=== PATIENT | female | born 1995 | race Caucasian/White ===

== ENCOUNTER 2018-03-25 16:07 | Inpatient (IN) | payer BC, OTHER ==
[~2018-03-25] VITALS: Ht 165.1 cm; Wt 68.0 kg
--- NOTE | 2018-03-25 20:50 | NUR ---
Pre-admission Assessment Patient is a 23-year old, male, seen at intake, AAOx4 and with no SOB noted. Patient also noted to be melancholic and with increasing anxiety. Patient verbalized that she is using Heroin IV daily for 8 months. Discussed with patient admission policies of the unit. Patient is coherent and able to respond to questions appropriately. Pt is ambulatory with steady gait. Vital signs taken and as follows: OO=021/64, P=97, O2 sat on RA=98%, RR=20, T=98.6. Pt verbalized instructions and teachings regarding disposal of narcotic and other controlled home meds, unit protocols such as taking of vital signs Q4H and handling and disposal of contraband.
--- NOTE | 2018-03-25 22:00 | NUR ---
ADMISSION NOTE Patient is a 23-year-old female admitted to [facility] on 03/25/18 for medically supervised opiate withdrawal. Patient was seen and assessed at intake by Josiah Hendrickson RN and on the unit at 2030. Patient is alert and oriented x4, coherent and able to answer questions, ambulatory with a steady gait. Patient appears anxious and worried, she is disheveled and fidgety. Patient states that her common withdrawal symptoms include: "chills and body aches are the worst, I get nauseous but only throw-up sometimes, runny/stuffy nose, and a lot of yawning. I get anxious and restless legs." Patient last used heroin IV around noon today and states, I used a lot less than I usually do, about 0.1gram which is like nothing. I feel like Im starting to withdraw already. Patient denies any history of seizure, denies any delirium or blackouts. Substance Abuse History: 1. Heroin IV 0.5-1gram daily for the past 2 weeks. Prior to two weeks ago, patient was using 0.5 grams daily since July 2017. Brief period of sobriety for 2 week during 2017. Patients last use was noon today 03/25/18, about 0.1 gram, and 0.1 gram at 0800 prior to noon. 2. Adderall PO 45-60mg every other day for the past 3 years. Patients last use was today, 03/25/18 of 60mg. 3. Vyvanse PO 140mg every other day for the past 3 years. Patient last use was yesterday, 03/24/18 of 140mg. 4. Xanax 0.5-1mg PO once or twice a month. Patient states, I dont take it very often because I dont like how it makes me feel. Last use was 03/10/18 of 1mg. Prior to starting Heroin IV in July of 2017, patient reports that she would occasionally take [place] or Oxy a couple times a month for all of 2016. Patient states that this is her first detox, with no previous treatment history. Patient states that she has not attended any AA/NA and she does not have a sponsor. When asked about why the client decided to seek treatment today, she stated, "Honestly, I'm here because of my parents. They said that they would stop supporting me unless I decided to come to detox. Obviously I want to be here too, but my parents are so controlling and I didn't want to have them decide what I do." Patient states that she was diagnosed with anxiety when she was [id number] and has been taking mood stabilizers and antidepressants since around the same time. In 2014 her physician Jose Ramon Biggs began to prescribe her with Adderall and Vyvanse, which she has been taking consistently since. Patient has a history of mild exercise-induced asthma but states that she has not used her inhaler since last year. Patient reports recurrent yeast infections and a history of frequent ear infections in her left year. After she had surgery to repair her left eardrum in 2014, she stopped having ear infections. When asked about why the client decided to seek treatment today, she stated, "Honestly, I'm here because of my parents. They said that they would stop supporting me unless I decided to come to detox. Obviously I want to be here too, but my parents are so controlling and I didn't want to have them decide what I do." She disclosed that, But part of the reason why I use is because of my parents. Theyre so controlling and never satisfied. I just started doing what I wanted to do because nothing I did was ever good enough for them. Margarette even talked to them about how their expectations are too high. When asked about living situation, patient states, "I was renting a room but I need to move out by the end of the month. My parents are helping me figure out where I'm going to live next, after rehab." When asked about internal motivation, patient states, "I don't really have one, I just don't want to need drugs to function." Patient denies using ETOH, cannabis, and denies smoking cigarettes. Patients longest period of sobriety was 2 weeks some time this past spring, stating, "I can't really remember when, I think it was October or November." Initial COWS 8, for stuffy nose, anxiety, increased HR, mild nausea, generalized body aches, and occasional yawning. Initial vitals as follows: XO=762/64, HR=97, O2 sat on RA=98%, RR=20, T=98.6. Patient denies pain, only complaining of body aches. Patients lung sounds are clear bilaterally, bowel sounds present x4 quadrants, abdomen soft and non-tender. PERRLA. Patients skin is intact, with some bruising noted bilaterally on her thighs from injecting heroin into the muscle if she could not find a vein. Patient stated, I know its bad, Im just impatient. Patient denies family health history, but states, "My mom is in recovery but she used to be an alcoholic. Her dad was an alcoholic too." Patient has been oriented to the unit, teaching has been provided verbally and via handout, policies reviewed. Patient is on fall and seizure precautions, safety measures in place, side rails up x2, bed locked in low position, call light within reach. Will continue to monitor.
[2018-03-25] MEDS ORDERED: MIRALAX 17 GM POWD.PACK PO PRN (22:15)
[2018-03-25] MEDS ORDERED: LOPERAMIDE HCL 2 MG CAPSULE PO PRN ×2 (22:15)
[2018-03-25] MEDS ORDERED: diphenhydrAMINE 50 MG CAPSULE PO PRN (22:15)
[2018-03-25] MEDS ORDERED: MAG HYDROX/AL HYDROX/SIMETH 30 ML LIQUID UDC PO PRN (22:15)
[2018-03-25] MEDS ORDERED: MAGNESIUM HYDROXIDE 30 ML LIQUID UDC PO PRN (22:15)
[2018-03-25] MEDS ORDERED: ONDANSETRON 4 MG/2 ML VIAL IM PRN (22:15)
[2018-03-25] MEDS ORDERED: 5 DAY TAPER BUPRENORPHINE -SERENITY PROTOCOL SL PRN (22:15)
[2018-03-25 22:18] LABS: BASOPHILS % (AUTO) 0.4 % (0.0-2.0); EOSINOPHILS # (AUTO) 0.2 K/uL (0.0-0.7); EOSINOPHILS % (AUTO) 2.6 % (0.0-7.0); HEMATOCRIT 38.8 % (31.2-41.9); HEMOGLOBIN 13.1 g/dL (10.9-14.3); LYMPHOCYTES # (AUTO) 4.7 K/uL (20.0-40.0); LYMPHOCYTES % (AUTO) 62.3 % (20.5-51.5); MEAN CORPUSCULAR HGB CONC 34 g/dL (32.3-35.6); MEAN CORPUSCULAR VOLUME 85.8 fL (75.5-95.3); MONOCYTES # (AUTO) 0.3 K/uL (2.0-10.0); MONOCYTES % (AUTO) 3.9 % (0.0-11.0); NEUTROPHILS # (AUTO) 2.3 K/uL (1.8-8.9); NEUTROPHILS % (AUTO) 30.8 % (38.5-71.5); PLATELET COUNT (AUTO) 281 K/uL (179-408); RED BLOOD CELL COUNT(AUTO) 4.52 MIL/uL (3.63-4.92); WHITE BLOOD COUNT (AUTO) 7.5 K/uL (3.8-11.8)
[2018-03-25 22:19] LABS: *URINE HCG, QUAL NEGATIVE (NEGATIVE)
[2018-03-25 22:29] LABS: ALANINE AMINOTRANSFERASE 60 U/L (14-59); ALKALINE PHOSPHATASE 163 U/L (50-136); AMYLASE 30 U/L (25-115); ASPARTATE AMINOTRANSFERASE 68 U/L (15-37); BILIRUBIN,TOTAL 0.8 mg/dL (0.2-1.0); CARBON DIOXIDE 29 mmol/L (21-32); CHLORIDE 97 mmol/L (98-107); CREATININE 0.8 mg/dL (0.6-1.3); GLUCOSE 59 mg/dL (74-106); LIPASE 120 U/L (73-393); MAGNESIUM 2.1 mg/dL (1.8-2.4); POTASSIUM 3.1 mmol/L (3.5-5.1); TOTAL PROTEIN, SERUM 8.4 g/dL (6.4-8.2); UREA NITROGEN, BLOOD 11 mg/dL (7-18)
[2018-03-25 22:30] LABS: ETHANOL < 3 MG/DL (0-0)
[2018-03-25 22:42] LABS: *AMPHETAMINE, URINE POSITIVE (NEGATIVE); *BARBITURATE, URINE NEGATIVE (NEGATIVE); *CANNABINOID, URINE NEGATIVE (NEGATIVE); *COCCAINE, URINE NEGATIVE (NEGATIVE); *OPIATE, URINE POSITIVE (NEGATIVE); *PHENCYCLIDINE SCREEN,URINE NEGATIVE (NEGATIVE)
[2018-03-25] MEDS ORDERED: POTASSIUM CHLORIDE 20 MEQ TAB.PRT.SR PO ONE (23:00)
[2018-03-25] MEDS ORDERED: LORAZEPAM 1 MG TABLET PO ONE (23:15)
[2018-03-25 23:40] LABS: THYROID STIMULATING HORMONE 2.125 mIU/mL (0.358-3.740)
--- NOTE | 2018-03-25 23:41 | NUR ---
COWS 16 Patient reports severe body aches, especially in her lower extremities. Patient reports stuffy nose, increased anxiety, piloerection, and mild nausea. Patient has increased HR and yawns several times every minute. Current COWS 16. SN to administer medications as ordered. Safety measures in place, side rails up x2, bed locked in low position, call light within reach. Will continue to monitor.
[2018-03-25] MEDS: BUPRENORPHINE HCL 2 MG TAB.SUBL SL PRN (23:45)
--- NOTE | 2018-03-25 23:45 | NUR ---
PRN SUBUTEX 4mg, ONE-TIME ATIVAN 2mg Patient given 4mg of Subutex SL for COWS of 16. Patient given 2mg Ativan PO as a one-time order for anxiety, agitation, restlessness, and irritability. Safety measures in place, side rails up x2, bed locked in low position, call light within reach. Will monitor for effectiveness.
[2018-03-26] VITALS: BP 114/66
[2018-03-26 00:02] LABS: BASOPHILS % (MANUAL) 1 % (0-2); EOSINOPHILS % (MANUAL) 1 % (0-8); LYMPHOCYTES % (MANUAL) 60 % (20-40); MONOCYTES % (MANUAL) 1 % (2-10); NEUTROPHILS % (MANUAL) 28 % (42-75)
--- NOTE | 2018-03-26 00:15 | NUR ---
PRN SUBUTEX REASSESSMENT Patient reports feeling "a little better." Current COWS is 13, 30 minutes after PRN Subutex 4mg SL. Safety measures in place, side rails up x2, bed locked in low position, call light within reach. Will continue to monitor.
[2018-03-26] MEDS ORDERED: FEXO-65 PO (01:25)
[2018-03-26] MEDS ORDERED: ARIP5TAB10 PO (01:28)
[2018-03-26] MEDS ORDERED: SIME125C81 PO (01:34)
[2018-03-26] MEDS ORDERED: VALA100026 PO (01:34)
[2018-03-26] MEDS ORDERED: LEVO1TAB64 PO (01:34)
[2018-03-26] MEDS ORDERED: SERT100T PO (01:34)
[2018-03-26] MEDS ORDERED: CALC117719 PO (01:37)
[2018-03-26] MEDS: METHOCARBAMOL 750 MG TABLET PO PRN ×2 (03:28→10:32)
[2018-03-26] MEDS: IBUPROFEN 400 MG TABLET PO PRN ×2 (03:28→10:33)
--- NOTE | 2018-03-26 03:28 | NUR ---
PRN MOTRIN & ROBAXIN Patient reports severe muscle aches in her legs and thighs, bilaterally. Patient reports that she is experiencing restless legs as well. PRN Motrin and Robaxin given PO. Safety measures in place, side rails up x2, bed locked in low position, call light within reach. Will monitor for effectiveness.
--- NOTE | 2018-03-26 03:45 | NUR ---
COWS 16 Patient states that her legs are very restless and aching terribly. She states, "my legs have never felt this sore before." Patient continues to report anxiety, piloerection, chills, agitation, mild nausea, and patient continues to yawn uncontrollably. Current COWS score is 16. SN to administer meds appropriately. Safety measures in place, call light within reach. Will continue to monitor.
[2018-03-26] MEDS: BUPRENORPHINE HCL 2 MG TAB.SUBL SL PRN (03:50)
[2018-03-26 04:00] VITALS: BP 111/63
--- NOTE | 2018-03-26 04:15 | NUR ---
PRN SUBUTEX REASSESSMENT Patient reports that withdrawal symptoms have improved, but that her legs still feel restless and sore/achy. Current COWS is 12. Safety measures in place, side rails up x2, bed locked in low position, call light within reach. Will continue to monitor.
--- NOTE | 2018-03-26 04:28 | NUR ---
PRN MOTRIN & ROBAXIN REASSESSMENT Patient states that her aches have improved from 7/10 to 5/10. PRN Motrin and Robaxin noted to be mildly effective. Safety measures in place, side rails up x2, bed locked in low position, call light within reach. Will continue to monitor.
--- NOTE | 2018-03-26 07:25 | NUR ---
END OF SHIFT Patient is a 23-year-old female admitted yesterday, 03/25/18, for opiate withdrawal. Patient has been placed on a 5-day Subutex taper, scheduled to start today. Patients last COWS was 12 at 0415 this morning, upon reassessment of second dose of Subutex. Patient received a one-time dose of Ativan 2mg at 2344 for anxiety, agitation, restlessness and irritability; noted to be effective. Patient received PRN Subutex 4mg SL x2, and PRN Motrin and Robaxin; all noted to be effective. Patients potassium was replace via oral K-dur tablets. Patient slept for 5 hours, total intake of 1,100mL, void x2, stool x1. Patient is on fall and seizure precautions, denies history of seizure. Safety measures in place, side rails up x2, bed locked in low position, call light within reach. Will endorse to day shift.
[2018-03-26] MEDS: DICYCLOMINE HCL 20 MG TABLET PO PRN (07:36)
--- NOTE | 2018-03-26 07:36 | NUR ---
START OF SHIFT & PRN Bentyl 20mg PO for abdominal spasms. Endorse rcvd from ongoing nurse, client in the room, she is a/o x 4, client presents with depressed mood, flat affect, clammy skin, and difficulty concentrating. Client reports nausea, diarrhea, stomach cramps, anxiety, agitation, fatigue, and restless legs. PRN Subutex 4mg SL @ 2345 & 0415 for COWS 16 both times, One time Ativan 2mg PO for anxiety. Last COWS 12 @ 0445. Client slept 5hr. [place] precautions in place. Encourage client to attend group therapy to learn skills to maintain sober. Encourage client to increase PO fluid a tolerated. Side rails x 2 up, bed in lowest/locked position. Call light within reach.
[2018-03-26] MEDS: MULTIVITAMINS,THERAPEUTIC TABLET PO SCH (08:06)
[2018-03-26] MEDS: BUPRENORPHINE HCL 2 MG TAB.SUBL SL SCH ×4 (08:06→20:43)
--- NOTE | 2018-03-26 08:06 | NUR ---
COWS 18 Client appears disheveled, dark [place] under eyes, presents with anxiety, irritability, sweat on forehead and upper lip, enlarged pupil, tremors felt, yawning, goosebump, and runny nose. Client reports abdominal spasms, nausea, stomach cramps, sweats, a sense of panic, and fatigue. Schedule Subutex 4mg SL administered. Encourage client to attend group therapy to learn skills to maintain sober. Encourage client to increase increase PO fluid as tolerated to facilitate detox. Call light within reach.
--- NOTE | 2018-03-26 08:36 | NUR ---
Reassess PRN Bentyl 20mg, client reports slight relief from abdominal spasms. Call light within reach.
[2018-03-26 08:55] VITALS: BP 138/86
[2018-03-26] MEDS ORDERED: TUBERCULIN,PURIF.PROT.DERIV. 5 TU/0.1 ML TEST ID ONE (09:00)
[2018-03-26] MEDS: ARIPIPRAZOLE 5 MG TABLET PO SCH ×3 (09:45→11:11)
[2018-03-26] MEDS: CLONIDINE HCL 0.1 MG TABLET PO PRN (10:33)
[2018-03-26] MEDS: ONDANSETRON ODT 4 MG TAB.RAPDIS SL PRN (10:33)
[2018-03-26] MEDS: ACETAMINOPHEN 325 MG TABLET PO PRN (10:33)
--- NOTE | 2018-03-26 10:33 | NUR ---
PRN Zofran 4mg SL, Tylenol 650mg Po, Motrin 60mg PO, Robaxin 750mg, and Clonidine 0.1mg PO administered for nausea, no episodes of emesis, ELIZONDO 7/10, myalgia on BLE, and Anxiety, agitation, chills respectively. Call light within reach.
[2018-03-26] MEDS: SERTRALINE HCL 100 MG TABLET PO SCH (10:34)
--- NOTE | 2018-03-26 11:03 | NUR ---
Reassess PRN Zofran 4mg, client reports relief from nausea at this time.
--- NOTE | 2018-03-26 11:33 | NUR ---
Reassess PRN Tylenol 650mg, Motrin 60mg, Robaxin 750mg, and Clonidine 0.1mg, client reports slight relief from ELIZONDO 3/10, myalgia on BLE, and nxiety, agitation. Call light within reach.
[2018-03-26 12:12] VITALS: BP 98/60
[2018-03-26] MEDS: HYDROXYZINE PAMOATE 25 MG CAPSULE PO PRN (12:29)
--- NOTE | 2018-03-26 12:29 | NUR ---
COWS 17 & PRN Vistaril 50mg Po for anxiety Client presents with anxiety, agitation, irritability, diaphoresis, enlarged pupil, tremors, runny nose, and yawing. Client reports in a a loud voice generalized body aches 6/10, nausea, stomach cramps, sweats, chills. cold, and fatigue. Schedule Subutex 4mg SL administered. Encourage client to increase PO fluid as tolerated to facilitate detox. Call light within reach.
--- NOTE | 2018-03-26 13:29 | NUR ---
Reassess PRN Vistaril 50mg, client reports slight relief from anxiety. Call light within reach.
[2018-03-26 16:42] VITALS: BP 100/61
[2018-03-26] MEDS: LEVONORGESTREL PO SCH (16:43)
[2018-03-26] MEDS: ETHINYL ESTRADIOL PO SCH (16:43)
--- NOTE | 2018-03-26 19:27 | NUR ---
START OF SHIFT NOTE: The patient is an 23 year female, presented for Benzodiazepines and Opioid withdrawal under medical supervision, continues ordered 5 day Subutex Tape (today is day 2), which tolerated well. Withdrawal symptoms will be closely monitoring. The patient is alert and oriented x4, ambulatory with steady gait, soft clear speech, cooperative, and verbally appropriate. The patient appears worried, difficulty concentrating, with poor eye contact. Anxious mood, and irritable affect. Encourage to expressing her feelings, reassuring provided. The most recent COWS=17 at 1642. Throughout day shift patient experienced moderate withdrawal symptoms such as anxiety, agitation, depression, irritability, nausea, nervousness, tremors, nasal congestion, severe general body aches, goose bumps, myalgia, restlessness, fatigue, and yawning. PRN medications administrated during day shift were effective per day shift nurse report. Patient remains compliant with treatment, medications, and diet regimen. Encouraged to attend group activities. Encouraged to intake fluids as tolerated. All needs met. Safety measures: Call light within reach, bed locked in lowest position, padded bed rails up x2. Endorsed by outgoing day shift nurse. Will continue to monitor closely.
--- NOTE | 2018-03-26 19:27 | NUR ---
END OF SHIFT Endorse client to incoming nurse, client is in group therapy, a/o x 4. Client monitored closely during shift, continues on Subutex taper as ordered. During shift client presented with nausea, anxiety, agitation, stomach cramps, difficulty concentrating, avoidant gaze, flushed face, goosebump, yawning, and fatigue. Last COWS 17 @ 1600.PRN administered and noted per protocol. Adequate PO fluid intake 1100mL, void x 3, stool x 1. Consumes 50-75% of meals. Call light within reach.
[2018-03-26 20:00] VITALS: BP 118/87
--- NOTE | 2018-03-26 20:00 | NUR ---
COWS ASSESSMENT COWS=12 at 2000. Patient experienced anxiety, agitation, depression, irritability, nervousness, sweating, fine tremors, flashed face, nasal congestion , restlessness, fatigue, and yawning. Encouraged to intake fluids as tolerated. Safe and calm environment provided. Encouraged to intake fluids as tolerated. All needs met. Safety measures: Call light within reach, bed locked in lowest position, padded bed rails up x2. Will continue to monitor closely.
[2018-03-26] MEDS ORDERED: POTASSIUM CHLORIDE 20 MEQ TAB.PRT.SR PO ONE (21:00)
[2018-03-27] VITALS: BP 95/56
--- NOTE | 2018-03-27 | NUR ---
COWS ASSESSMENT COWS=11 at 0000. Patient presented with anxiety, agitation, depression, irritability, nervousness, bilateral pupils larger than normal size, sweating, fine tremors, nasal congestion , restlessness, and fatigue. Encouraged to intake fluids as tolerated. Safe and calm environment provided. Encouraged to intake fluids as tolerated. All needs met. Safety measures: Call light within reach, bed locked in lowest position, padded bed rails up x2. Will continue to monitor closely.
[2018-03-27 04:00] VITALS: BP 95/53
--- NOTE | 2018-03-27 04:00 | NUR ---
COWS ASSESSMENT COWS=11 at 0400. Patient presented with anxiety, agitation, irritability, nervousness, nasal congestion, sweating, bilateral tremors that can be felt not observe, restlessness, fatigue, and yawning. Safe and calm environment provided. All needs met. Safety measures: Call light within reach, bed locked in lowest position, padded bed rails up x2. Will continue to monitor closely.
[2018-03-27 07:06] LABS: HEPATITIS B SURFACE AG Negative (Negative)
--- NOTE | 2018-03-27 07:18 | NUR ---
END OF SHIFT NOTE: The patient is an 23 year female, presented for Benzodiazepines and Opioid withdrawal under medical supervision, continues ordered 5 day Subutex Tape (today is day 2), which tolerated well. Withdrawal symptoms will be closely monitoring. The patient is alert and oriented x4, ambulatory with steady gait, soft clear speech, cooperative, and verbally appropriate. The patient appears worried, difficulty concentrating, with poor eye contact. Anxious mood, and irritable affect. Encourage to expressing her feelings, reassuring provided. COWS=12 at 2000, COWS=11 at 0000. The most recent COWS=11 at 0400. Patient presented with anxiety, agitation, irritability, nervousness, nasal congestion, sweating, bilateral tremors that can be felt not observe, restlessness, fatigue, and yawning. No PRN medications administrated during night clerk. Patient remains compliant with treatment, medications, and diet regimen. Patient slept for 10 hours, intake 355 ml, output: voided x1. Safe and calm environment provided. Encouraged to intake fluids as tolerated. All needs met. Safety measures: Call light within reach, bed locked in lowest position, padded bed rails up x2. Endorsed to day shift nurse.
--- NOTE | 2018-03-27 07:30 | NUR ---
START OF SHIFT Endorse rcvd from ongoing nurse, client had an uneventful night, she slept 11hrs. Last COWS 11 @ 0400. Client is in bed, lying on her R side, she sounds asleep, easy to arouse. RR 16, even, non-labored. Call light within reach. Room is unkept, open soft drink and water bottles along with candy wraps scattered around her bedside and floor. Primary nurse cleaned area. Will continue to monitor.
[2018-03-27 08:55] VITALS: BP 100/60
[2018-03-27] MEDS: SERTRALINE HCL 100 MG TABLET PO SCH (09:14)
[2018-03-27] MEDS: BUPRENORPHINE HCL 2 MG TAB.SUBL SL SCH ×3 (09:14→20:45)
--- NOTE | 2018-03-27 09:14 | NUR ---
COWS 16 Client is in bed, she appears disheveled, dark [place] under eyes, tremors, clammy skin, restless legs, and difficulty concentrating. Client reports generalized body aches 6/10, nausea, no emesis, headache, fatigue, depressed, stomach cramps, and do not feel like to getting up, or walk around or even take a shower." Schedule Subutex 4mg SL, Abilify 2.5mg PO, Zoloft 100mg PO administered. Encourage client to increase ADL as tolerated. Encourage increase intake PO fluid as tolerated to facilitate detox. Call light within reach.
[2018-03-27] MEDS: MULTIVITAMINS,THERAPEUTIC TABLET PO SCH (09:15)
[2018-03-27] MEDS: ONDANSETRON ODT 4 MG TAB.RAPDIS SL PRN (09:15)
[2018-03-27] MEDS: ARIPIPRAZOLE 5 MG TABLET PO SCH (09:15)
--- NOTE | 2018-03-27 09:15 | NUR ---
PRN Zofran 4mg SL for nausea, no emesis administered. Call light within reach.
[2018-03-27] MEDS: LEVONORGESTREL PO SCH (09:16)
[2018-03-27] MEDS: ETHINYL ESTRADIOL PO SCH (09:16)
--- NOTE | 2018-03-27 09:45 | NUR ---
Reassess PRN Zofran 4mg, client reports relief from nausea. Call light within reach.
--- NOTE | 2018-03-27 10:04 | NUR ---
Therapist prompted client to attend group therapy sessions and client stated that she would be attending.
--- NOTE | 2018-03-27 12:50 | NUR ---
COWS 13 Client presents with anxiety, agitation, irritability, enlarged pupil, tremors, runny nose, and yawing. Support offered, client decline PRN medications to assist with withdrawal symptoms. Encourage client to increase PO fluid as tolerated to facilitate detox. Call light within reach.
[2018-03-27 12:55] VITALS: BP 105/60
--- NOTE | 2018-03-27 15:40 | NUR ---
COWS 13 Client reports restless, anxiety, agitation, nausea, decreased appetite, cold/chills, and fatigue. Schedule Subutex 4mg SL administered. Call light within reach.
[2018-03-27 16:00] VITALS: BP 98/56
--- NOTE | 2018-03-27 19:21 | NUR ---
END OF SHIFT Endorse client to incoming nurse, client is in room, a/o x 4.Client continues to present with anxiety, agitation, tremors, clammy skin, nausea, yawning, nasal congestion, and fatigue. Last COWS 13 @ 1600. PRN medication administered and noted per protocol. Client is not compliant with group therapy, encouragement needed. Adequate PO fluid intake 1446mL, void x 5. Consumes 50-75% of meals. Call light within reach.
--- NOTE | 2018-03-27 19:44 | NUR ---
START OF SHIFT NOTE Rcvd report from outgoing nurse. Pt is a 23 y/o female A/O to person, place, time, and purpose. Pt was admitted for medically supervised withdrawal from Opiates. Pt also has a substance abuse h/o Aderall, Vyvance, and Xanax (rarely). Pt has been presenting w/ flat affect, depressed mood, nausea, unkempt and disheveled appearance, and isolative. Pt states they have body aches, headaches, anxiety, tremors, and lethargy. PRN Zofran was given for nausea w/ no emesis, noted effective. Last COWS 13 @ 1600. Call light is within reach. Pt will continue to be monitored and needs met.
[2018-03-27 20:31] VITALS: BP 115/63
--- NOTE | 2018-03-27 20:31 | NUR ---
COWS ASSESSMENT COWS 13. Pt has been presenting w/ flat affect, depressed mood, nausea, unkempt and disheveled appearance, isolative, body aches, headaches, anxiety, tremors, and lethargy. V/S: T:98.8, P:78, RR:16, SPO2:99, BP:115/63.
--- NOTE | 2018-03-28 00:04 | NUR ---
COWS DEFERRED Pt is in bed w/ her eyes closed. Pt's respirations are unlabored and even.
[2018-03-28] MEDS: CLONIDINE HCL 0.1 MG TABLET PO PRN (03:29)
[2018-03-28] MEDS: METHOCARBAMOL 750 MG TABLET PO PRN ×2 (03:29→11:06)
--- NOTE | 2018-03-28 03:29 | NUR ---
PRN CLONIDINE AND ROBAXIN Clonidine 0.1mg and Robaxin 750mg given for muscle aches and anxiety/restlessness. Will reassess pt in 1 hr.
--- NOTE | 2018-03-28 04:01 | NUR ---
COWS ASSESSMENT COWS 12. Pt presenting w/ anxiety, body aches, headache, restlessness, and tremors. V/S: P: 67, BP: 129/77
[2018-03-28 04:04] VITALS: BP 129/77
--- NOTE | 2018-03-28 04:29 | NUR ---
PRN ROBAXIN AND CLONIDINE Pt is in bed w/ her eyes closed. Pt's respirations are unlabored and even.
--- NOTE | 2018-03-28 07:09 | NUR ---
END OF SHIFT NOTE Endorsed pt to oncoming nurse. Pt is a 23 y/o female A/O to person, place, time, and purpose. Pt was admitted for medically supervised withdrawal from Opiates. Pt also has a substance abuse h/o Aderall, Vyvance, and Xanax (rarely). Pt has been presenting w/flat affect, depressed mood, nausea, unkempt and disheveled appearance, and isolative. Pt states they have body aches, headaches, anxiety, tremors, and lethargy. PRN Robaxin and Clonidine were given and noted effective. Pt denies any S/I or H/I. Pts fluid intake was 1000ml and she voided 3 times. Pt slept for 8 hrs. Last COWS 12 @ 0400. Call light is within reach.
--- NOTE | 2018-03-28 07:20 | NUR ---
Start of Shift Note Pt. is a 23 y/o female admitted for the medically managed withdrawal from Opiates (Heroin). Pt. was also concurrently using Adderall,and Vyvanze, daily along with her opiate abuse. Pt. was placed on a 5 day Subutex taper to manage withdrawal symptoms. Endorse from previous shift pt. presented with a flat affect, depressed mood, nausea, withdrawn, body aches, anxiety, tremors and with a disheveled appearance. PRN Robaxin and Clonidine given to manage withdrawal symptoms. Last COW's of 12. Received pt. in room. Pt. laying in bed with eyes closed respiration even and symmetrical. Pt. arousable to name. Educated pt. on treatment plan and medication regiment. Safety measures in place. Will continue to monitor pt.'s behavior for safety.
[2018-03-28 08:00] VITALS: BP 90/51
--- NOTE | 2018-03-28 08:00 | NUR ---
COWS ASSESSMENT COWS 12. Pt. laying in her bed and presents with diaphoresis, body aches, nausea, anxiety and tremors. Will administer medication as ordered. Will continue to monitor pt.'s behavior for safety.
[2018-03-28] MEDS: SERTRALINE HCL 100 MG TABLET PO SCH (08:12)
[2018-03-28] MEDS: ETHINYL ESTRADIOL PO SCH (08:12)
[2018-03-28] MEDS: LEVONORGESTREL PO SCH (08:12)
[2018-03-28] MEDS: ARIPIPRAZOLE 5 MG TABLET PO SCH (08:12)
[2018-03-28] MEDS: MULTIVITAMINS,THERAPEUTIC TABLET PO SCH (08:12)
[2018-03-28] MEDS ORDERED: BUPRENORPHINE HCL 2 MG TAB.SUBL SL SCH (09:00)
[2018-03-28] MEDS: IBUPROFEN 400 MG TABLET PO PRN ×2 (11:06→20:23)
--- NOTE | 2018-03-28 11:07 | NUR ---
PRN Medication Pt. in room laying in her bed complaining of body aches 01/04. PRN Motrin and Robaxin given at this time. Will continue to monitor pt.'s behavior for safety and medication effectiveness.
--- NOTE | 2018-03-28 12:00 | NUR ---
COWS ASSESSMENT COWS 1. Pt. laying in her bed and presents with diaphoresis, body aches, nausea, anxiety and tremors. Pt. compliant with medication administration and is able to make her needs be known. Will continue to monitor pt.'s behavior for safety.
--- NOTE | 2018-03-28 12:10 | NUR ---
PRN Medication Re-Assessment Pt. is laying in bed watching television. Pt. reports 0/10 pain. Medication effective. Will continue to monitor pt.'s behavior safety.
[2018-03-28 12:15] VITALS: BP 94/50
[2018-03-28] MEDS: BUPRENORPHINE HCL 2 MG TAB.SUBL SL SCH ×2 (14:07→20:23)
[2018-03-28] MEDS: DICYCLOMINE HCL 20 MG TABLET PO PRN (15:35)
[2018-03-28] MEDS: BACLOFEN 20 MG TABLET PO PRN (15:35)
--- NOTE | 2018-03-28 15:36 | NUR ---
PRN Medication Pt. laying bed with linens pulled over her head. Pt. reports chills, stomach cramps, and 6/10 body aches. Pt. given PRN Baclofen and Bentyl, at this time to manage withdrawal symptoms. Will continue to monitor pt. for safety and drug effectiveness.
[2018-03-28 16:00] VITALS: BP 87/48
--- NOTE | 2018-03-28 16:00 | NUR ---
COWS ASSESSMENT COWS 11. Pt. laying in her bed and presents with diaphoresis, body aches, anxiety and tremors. Pt. compliant with treatment plan and medication administration. Will continue to monitor pt. for safety.
--- NOTE | 2018-03-28 16:15 | NUR ---
PRN Re-Assessment Pt. laying in bed and reports a decreased in body aches intensity 2/10, Pt. also reports no longer experiencing any stomach cramping anymore. Medication effective. Will continue to monitor pt. for safety.
--- NOTE | 2018-03-28 19:06 | NUR ---
End of Shift Note Pt. is a 23 y/o female admitted for the medically managed withdrawal from Opiates (Heroin). Pt. was also concurrently using Adderall,and Vyvanze, daily along with her opiate abuse. Pt. compliant with her medication regiment throughout shift. Pt, continually presented with a flat affect, depressed mood, nausea, withdrawn, body aches, anxiety, tremors and with a disheveled appearance. PRN Robaxin, Baclofen, Bentyl, and Motrin given to manage withdrawal symptoms. Last COW's of 11. Safety measures in place. Will endorse pt.'s care to oncoming shift.
--- NOTE | 2018-03-28 19:30 | NUR ---
Start of shift note Received report from day shift nurse. Patient is a 23 year old female admitted for Opiate withdrawal. Patient is on 5 day Subutex taper. Patient was given PRN Robaxin, Clonidine and Motrin. Last COWS 11. Patient alert and oriented x 4. Patient presents with flat affect, depressed mood, eye avoidant, disheveled, anxious, muscle aches, hot and cold sweats, yawning , poor appetite, and tremors. Encourage fluids. Safety measures in place. Call light in reach. Will continue to monitor.
[2018-03-28 20:00] VITALS: BP 106/60
--- NOTE | 2018-03-28 20:00 | NUR ---
COWS assessment Patient presents with anxiety , muscle aches, hot and cold sweats, yawning , poor appetite, and tremors. COWS 11.
--- NOTE | 2018-03-28 20:23 | NUR ---
PRN Motrin administration Patient c/o body aches. Will monitor for effectiveness
--- NOTE | 2018-03-28 21:23 | NUR ---
PRN Motrin re-assessment Patient states Motrin helpful and effective. Will continue to monitor.
[2018-03-29] VITALS: BP 104/54
--- NOTE | 2018-03-29 | NUR ---
COWS deferred Patient lying in bed with eyes closed. Respiration even and unlabored. Will continue to monitor
[2018-03-29 04:00] VITALS: BP 102/64
--- NOTE | 2018-03-29 04:00 | NUR ---
COWS deferred Patient lying in bed with eyes closed. Respiration even and unlabored.Will continue to monitor
--- NOTE | 2018-03-29 05:15 | NUR ---
COWS assessment Patient awake . Anxious and c/o muscle aches. CIWA 8 upon assessment
[2018-03-29] MEDS: BACLOFEN 20 MG TABLET PO PRN ×3 (05:16→20:59)
--- NOTE | 2018-03-29 05:16 | NUR ---
PRN Baclofen administration Patient c/o muscle aches. Will monitor for effectiveness
--- NOTE | 2018-03-29 06:16 | NUR ---
PRN Baclofen re-assessment Patient lying in bed with eyes closed. Respiration even and unlabored. No facial grimacing. Will continue to monitor
--- NOTE | 2018-03-29 07:07 | NUR ---
End of shift note Patient slept 5 hours. Fluid intake 750 ml. Voided x 2.No BM. Patient isolative and withdrawn. Patient presented with flat affect, depressed mood, eye avoidant, disheveled, anxious, muscle aches, hot and cold sweats, yawning , poor appetite, and tremors. Scheduled taper given, tolerated well and no adverse reaction. PRN Motrin given, effective. At, 0516, patient woke up and c/o muscle aches. PRN Baclofen given. Encouraged fluids. Safety measures in place. Call light in reach. Will continue to monitor. Last COWS 8.
--- NOTE | 2018-03-29 07:40 | NUR ---
START OF SHIFT Endorse rcvd from ongoing nurse, PRN Baclofen 20mg PO for muscle spasms on BLE, she slept 5 hrs. Last COWS 8 @ 0500. Client is in bed, lying on her L side, she sounds asleep, easy to arouse. RR 16, even, non-labored. Call light within reach. Will continue to monitor.
[2018-03-29] MEDS: BUPRENORPHINE HCL 2 MG TAB.SUBL SL SCH ×3 (08:44→20:18)
[2018-03-29] MEDS: SERTRALINE HCL 100 MG TABLET PO SCH (08:44)
[2018-03-29] MEDS: ACETAMINOPHEN 325 MG TABLET PO PRN (08:44)
[2018-03-29] MEDS: HYDROXYZINE PAMOATE 25 MG CAPSULE PO PRN (08:44)
[2018-03-29] MEDS: ARIPIPRAZOLE 5 MG TABLET PO SCH (08:44)
[2018-03-29] MEDS: IBUPROFEN 400 MG TABLET PO PRN (08:44)
[2018-03-29] MEDS: MULTIVITAMINS,THERAPEUTIC TABLET PO SCH (08:44)
--- NOTE | 2018-03-29 08:44 | NUR ---
COWS 12 @ Motrin 600mg PO, Tylenol 650mg PO, Vistaril 50mg PO Client is in bed, dark comanche under eyes, tremors felt, clammy skin, restless legs, and difficulty concentrating. Client reports generalized body aches 6/10, nausea, no emesis, headache, fatigue, depressed, stomach cramps, and fatigue. Schedule Subutex 2mg SL, Abilify 2.5mg PO, Zoloft 100mg PO administered. Encourage client to increase ADL as tolerated. Encourage increase intake PO fluid as tolerated to facilitate detox. Call light within reach.
[2018-03-29] MEDS: LEVONORGESTREL PO SCH (08:48)
[2018-03-29] MEDS: ETHINYL ESTRADIOL PO SCH (08:48)
[2018-03-29 08:50] VITALS: BP 105/60
--- NOTE | 2018-03-29 09:44 | NUR ---
Reasses Motrin 600mg, Tylenol 650mg, Vistaril 50mg, client reports some relief from generalized body aches 3/10, but tolerable and slight less anxious. Call light within reach.
[2018-03-29 12:00] VITALS: BP 97/52
--- NOTE | 2018-03-29 12:00 | NUR ---
COWS 12 Client presents with anxiety, agitation, irritability, enlarged pupil, tremors, runny nose, and yawing. Support offered, client refused any PRN medications to manage with withdrawal symptoms. Encourage client to increase PO fluid as tolerated to facilitate detox. Call light within reach.
--- NOTE | 2018-03-29 13:08 | NUR ---
PRN Baclofen 20mg PO for muscle spasms on BLE. Call light within reach.
--- NOTE | 2018-03-29 14:06 | NUR ---
Therapist prompted client to attend group therapy.
--- NOTE | 2018-03-29 14:08 | NUR ---
PRN Baclofen 20mg, client reports relief from muscle spasms on BLE. Call light within reach.
--- NOTE | 2018-03-29 15:29 | NUR ---
COWS 12 Client reports restless, anxiety, agitation, nausea, decreased appetite, cold/chills, and fatigue. Schedule Subutex 2mg SL administered. Call light within reach.
[2018-03-29 16:55] VITALS: BP 93/58
--- NOTE | 2018-03-29 19:04 | NUR ---
END OF SHIFT Endorse client to incoming nurse, client is in room, a/o x 4.Client continues to present with anxiety, agitation, tremors felt, clammy skin, nausea, and fatigue. Last COWS 12 @ 1600. PRN medication administered and noted per protocol. Client is not compliant with group therapy, encouragement needed. Adequate PO fluid intake 1950mL, void x 5. Consumes 50-75% of meals. Call light within reach.
--- NOTE | 2018-03-29 19:25 | NUR ---
START OF SHIFT Patient is a 23-year-old female admitted on 03/25/28 for opiate withdrawal. Patient is currently on a Subutex taper, tolerating well; the taper will end tomorrow morning. Patient's last COWS score was 12, per endorsement. Patient received the following PRN medications today: Motrin, Tylenol, Vistaril, and baclofen. All PRN meds noted to be effective. Upon assessment, patient is alert and oriented x4. Patient complains of nausea and body aches. She states, "I just don't feel good. I still feel uncomfortable all the time." Patient is on fall and seizure precautions with no history of seizure. Safety measures in place, side rails up x2, bed locked in low position, call light within reach. Will continue to monitor.
[2018-03-29 20:00] VITALS: BP 94/51
[2018-03-29] MEDS: ONDANSETRON ODT 4 MG TAB.RAPDIS SL PRN (20:18)
--- NOTE | 2018-03-29 20:18 | NUR ---
PRN ZOFRAN Patient reports nausea. PRN Zofran 4mg given SL. Within 3 minutes of administration, patient had one episode of emesis. Safety measures in place, side rails up x2, bed locked in low position, call light within reach. Will monitor for effectiveness.
--- NOTE | 2018-03-29 20:48 | NUR ---
PRN ZOFRAN REASSESSMENT After initial episode of emesis, patient reports no further N/V. PRN Zofran noted to be effective. Safety measures in place, side rails up x2, bed locked in low position, call light within reach. Will continue to monitor.
[2018-03-29 21:12] LABS: BILIRUBIN,TOTAL 0.5 mg/dL (0.2-1.0); CREATININE 0.8 mg/dL (0.6-1.3); POTASSIUM 3.9 mmol/L (3.5-5.1); TOTAL PROTEIN, SERUM 7.3 g/dL (6.4-8.2)
[2018-03-30] VITALS: BP 92/48
--- NOTE | 2018-03-30 | NUR ---
COWS DEFERRED COWS deferred at this time due to patient sleeping; to be assessed while patient is awake. Safety measures in place, side rails up x2, bed locked in low position, call light within reach. Will continue to monitor.
[2018-03-30 04:00] VITALS: BP 84/46
--- NOTE | 2018-03-30 04:00 | NUR ---
COWS DEFERRED COWS deferred at this time due to patient sleeping; to be assessed while patient is awake, per protocol. Safety measures in place, side rails up x2, bed locked in low position, call light within reach. Will continue to monitor.
--- NOTE | 2018-03-30 05:50 | NUR ---
COWS 11 Patient reports that she is no longer nauseous, no more episodes of emesis. Patient reports muscle aches/spasm, some chills, anxiety, and overall feeling "uncomfortable." Current COWS 11. Safety measures in place, side rails up x2, bed locked in low position, call light within reach. Will continue to monitor.
[2018-03-30] MEDS: BACLOFEN 20 MG TABLET PO PRN ×3 (05:54→18:33)
--- NOTE | 2018-03-30 05:54 | NUR ---
PRN BACLOFEN Patient reports feeling muscle aches and requests muscle relaxant. PRN Baclofen given PO. Safety measures in place, side rails up x2, bed locked in low position, call light within reach. Will monitor for effectiveness.
--- NOTE | 2018-03-30 06:54 | NUR ---
PRN BACLOFEN REASSESSMENT Patient reports that PRN Baclofen was effective in relieving muscle aches/spasms. Safety measures in place, call light within reach. Will continue to monitor.
--- NOTE | 2018-03-30 07:20 | NUR ---
END OF SHIFT Patient is a 23-year-old female admitted on 03/25/28 for opiate withdrawal. Patient is currently on a Subutex taper, tolerating well; taper will be completed this morning (last dose 0900). Patient's last COWS score was 11. Patient received PRN Zofran for nausea, which was effective after one episode of emesis. PRN Baclofen given for complaints of muscle spasm this morning, noted to be effective. Patient slept for 6 hours, total intake of 400mL, void x2, stool x0. Patient is on fall and seizure precautions with no history of seizure. Safety measures in place, side rails up x2, bed locked in low position, call light within reach. Will endorse to day shift.
[2018-03-30 07:24] LABS: BASOPHILS % (AUTO) 0.5 % (0.0-2.0); EOSINOPHILS # (AUTO) 0.2 K/uL (0.0-0.7); EOSINOPHILS % (AUTO) 2.3 % (0.0-7.0); HEMATOCRIT 35.6 % (31.2-41.9); LYMPHOCYTES # (AUTO) 4.7 K/uL (20.0-40.0); LYMPHOCYTES % (AUTO) 66.6 % (20.5-51.5); MEAN CORPUSCULAR HEMOGLOBIN 28.9 uug (24.7-32.8); MEAN CORPUSCULAR HGB CONC 34 g/dL (32.3-35.6); MEAN CORPUSCULAR VOLUME 85.6 fL (75.5-95.3); MONOCYTES # (AUTO) 0.4 K/uL (2.0-10.0); MONOCYTES % (AUTO) 5.2 % (0.0-11.0); NEUTROPHILS # (AUTO) 1.8 K/uL (1.8-8.9); NEUTROPHILS % (AUTO) 25.4 % (38.5-71.5); PLATELET COUNT (AUTO) 257 K/uL (179-408); RED BLOOD CELL COUNT(AUTO) 4.15 MIL/uL (3.63-4.92)
[2018-03-30 07:42] LABS: BILIRUBIN,DIRECT 0.2 mg/dL (0.0-0.2); BILIRUBIN,TOTAL 0.5 mg/dL (0.2-1.0); CREATININE 0.8 mg/dL (0.6-1.3); POTASSIUM 3.8 mmol/L (3.5-5.1); TOTAL PROTEIN, SERUM 6.9 g/dL (6.4-8.2)
[2018-03-30 08:00] VITALS: BP 111/74
[2018-03-30 08:04] LABS: BAND % (MANUAL) 1 % (0-10); EOSINOPHILS % (MANUAL) 3 % (0-8); LYMPHOCYTES % (MANUAL) 55 % (20-40); MONOCYTES % (MANUAL) 8 % (2-10); NEUTROPHILS % (MANUAL) 28 % (42-75)
--- NOTE | 2018-03-30 08:05 | NUR ---
START OF SHIFT: Received Pt A/O X 4. She presents with blunted affect and subdued mood. She continues on Subutex taper to manage s/s of w/d. She reports body aches,anxiety,intermittent sweats and chills and anxiety. COWS 9. She states she had nausea last night but states she feels better this AM. Encouraged group attendance to improve coping skills and prevent relapse.Encouraged increased fluids to assist in facilitating detox process.
[2018-03-30 08:06] LABS: REACTIVE LYMPHOCYTES 5 % (0-0)
[2018-03-30] MEDS: ARIPIPRAZOLE 5 MG TABLET PO SCH (08:42)
[2018-03-30] MEDS: LEVONORGESTREL PO SCH (08:43)
[2018-03-30] MEDS: ETHINYL ESTRADIOL PO SCH (08:43)
[2018-03-30] MEDS: SERTRALINE HCL 100 MG TABLET PO SCH (08:43)
[2018-03-30] MEDS: MULTIVITAMINS,THERAPEUTIC TABLET PO SCH (08:43)
[2018-03-30] MEDS ORDERED: BUPRENORPHINE HCL 2 MG TAB.SUBL SL SCH (09:00)
[2018-03-30 12:00] VITALS: BP 103/57
--- NOTE | 2018-03-30 12:05 | NUR ---
COWS 7. She reports muscle aches,restless and intermittent sweats.
--- NOTE | 2018-03-30 12:20 | NUR ---
Pt C/O muscle aches. PRN Baclofen given. Will monitor effectiveness of PRN.
--- NOTE | 2018-03-30 13:20 | NUR ---
Pt state Baclofen was effective. She states her muscle aches have lessened.
[2018-03-30] MEDS ORDERED: BACL20TA PO (13:27)
[2018-03-30] MEDS ORDERED: CLON0.1T14 PO (13:27)
[2018-03-30] MEDS ORDERED: ARIP5TAB10 PO (13:27)
[2018-03-30 16:00] VITALS: BP 101/51
[2018-03-30] MEDS: ACETAMINOPHEN 325 MG TABLET PO PRN (17:29)
[2018-03-30] MEDS: IBUPROFEN 400 MG TABLET PO PRN (17:29)
--- NOTE | 2018-03-30 17:31 | NUR ---
PRN Zofran, Motrin, and Tylenol Pt c/o nausea and being on the verge of vomiting. PRN Zofran IM administered. She also reports generalized body aches 5/10. PRN Motrin and Tylenol administered.
--- NOTE | 2018-03-30 18:00 | NUR ---
PRN Zofran reassessment PRN Zofran somewhat effective. Pt reports that the urge to vomit has subsided but continues to have mild nausea. Provided pt with saltine crackers and encouraged small sips of sprite.
--- NOTE | 2018-03-30 18:30 | NUR ---
PRN Motrin and Tylenol reassessment PRN Motrin and Tylenol not effective. Pt continues to have generalized body aches /10.
--- NOTE | 2018-03-30 18:36 | NUR ---
PRN Baclofen Pt reports generalized body aches 12/04. PRN Baclofen administered.
--- NOTE | 2018-03-30 18:38 | NUR ---
END OF SHIFT: Pt completed Subutex taper to manage s/s of w/d. She c/o muscle aches and nausea today. PRN Baclofen given X2 and effective. Motrin PRN and Tylenol also given and effective. She states Zofran was mildly effective and saltine crackers were offered. Last COWS 7. She isolated in room with no group attendance. She refused to get out of bed to get her own snacks. Encouraged ambulation and independence.She is scheduled for RTC in am tomorrow. Will pass shift report to oncoming night nurse.
--- NOTE | 2018-03-30 19:30 | NUR ---
Start of shift note Received report from day shift nurse. Patient is a 34 year old male admitted for ETOH withdrawal. Patient is on 5 day Valium taper. Patient was given PRN Clonidine for BP-158/106, effective . BP went down to 142/91. PRN Motrin given for headache. Last CIWA 12. Patient alert and oriented x 4. Patient presents with flat affect, unshaven, anxiety, intermittent perspiration,restlessness and headache. Safety measures in place. Call light in reach. Will continue to monitor Addendum: 03/31/18 at 0009 by SHAHEED LOPEZ LVN ERROR: This charting is for another patient
[2018-03-30 20:00] VITALS: BP 93/52
--- NOTE | 2018-03-30 20:00 | NUR ---
Start of shift note Received report from day shift nurse. Patient is a 23 year old female admitted for opiate withdrawal. Patient completed 5 day Subutex taper. Patient is medically cleared to be discharge tomorrow. Patient was given PRN Baclofen x 2, Motrin, Tylenol and Zofran IM. Last COWS 7. Patient presents with flat affect, depressed mood, unkempt , intermittent perspiration , anxious and restless. Safety measures in place. Call light in reach. Will continue to monitor.
--- NOTE | 2018-03-30 20:00 | NUR ---
COWS assessment Patient presents with intermittent perspiration , anxious and restless. COWS 6.
[2018-03-31] VITALS: BP 100/62
--- NOTE | 2018-03-31 | NUR ---
COWS deferred Patient lying in bed with eyes closed. Respiration even and unlabored. Will continue to monitor
[2018-03-31 04:00] VITALS: BP 107/58
--- NOTE | 2018-03-31 04:00 | NUR ---
COWS assessment Patient awake, presents with anxiety, sweating, abdominal cramping and muscle aches Addendum: 03/31/18 at 0441 by SHAHEED LOPEZ LVN PEGGY Collins.
[2018-03-31] MEDS: BACLOFEN 20 MG TABLET PO PRN (04:21)
--- NOTE | 2018-03-31 04:21 | NUR ---
PRN Baclofen administration Patient c/o muscle aches. Will monitor for effectiveness
[2018-03-31] MEDS: DICYCLOMINE HCL 20 MG TABLET PO PRN (04:30)
--- NOTE | 2018-03-31 04:30 | NUR ---
PRN Bentyl administration Patient c/o abdominal cramping. Will monitor for effectiveness
--- NOTE | 2018-03-31 05:30 | NUR ---
PRN Baclofen and Bentyl re-assessment Patient lying in bed with eyes closed. Respiration even and unlabored. No facial grimacing. Will continue to monitor
--- NOTE | 2018-03-31 07:21 | NUR ---
End of shift note Patient slept 6 hours. Fluid intake 1,443 ml. Voided x 5. No BM. Patient completed 5 day Subutex taper. Patient is medically cleared to be discharge today. Patient presented with flat affect, depressed mood, unkempt , intermittent perspiration , anxious and restless. Patient at 0400 awake , c/o abdominal cramping and muscle aches. PRN Baclofen and Bentyl given. Safety measures in place. Call light in reach. Will continue to monitor. Last COWS 5.
--- NOTE | 2018-03-31 07:30 | NUR ---
START OF SHIFT Endorse rcvd from ongoing nurse, client is in bed, a/o x 4, she presents with dark circles under eyes, depressed mood, flat affect, avoidant aye. Client reports feeling tired d/t inability to sleep and mild nausea, but refuses Zofran, stating, "No, after I eat something it will help my nausea." saltine crackers offered to client. Client completed 5 day Subutex taper, last COWS 5 @ 0400. Client is schedule for D/C this am to [facility] for continuity of treatment. PRN Baclofen for muscle spasms, Benadryl 50mg PO for inability to sleep, client slept 6 hrs. [place] precautions in place. Call light within reach.
[2018-03-31] MEDS: MULTIVITAMINS,THERAPEUTIC TABLET PO SCH (08:36)
[2018-03-31] MEDS: ETHINYL ESTRADIOL PO SCH (08:36)
[2018-03-31] MEDS: SERTRALINE HCL 100 MG TABLET PO SCH (08:36)
[2018-03-31] MEDS: ACETAMINOPHEN 325 MG TABLET PO PRN (08:36)
[2018-03-31] MEDS: LEVONORGESTREL PO SCH (08:36)
[2018-03-31] MEDS: IBUPROFEN 400 MG TABLET PO PRN (08:36)
--- NOTE | 2018-03-31 08:36 | NUR ---
PRN Motrin 400mg PO, Tylenol 650mg PO administered for generalized body aches 12/04. Call light within reach.
[2018-03-31] MEDS: ARIPIPRAZOLE 5 MG TABLET PO SCH (08:37)
[2018-03-31 08:49] VITALS: BP 100/60
--- NOTE | 2018-03-31 09:30 | NUR ---
Discharge Note Client discharged in stable condition with all valuable, belongings and home meds. Client denies SI/HI. Client report some relief from generalized body aches 2/10, but tolerable. To [facility] via private car.
== END 2018-03-31 09:30 | disposition other institution (70) | DRG 895 ==
LOC: SRC 19:07
PROVIDERS: ADMIT Family Medicine Addiction Medicine; ATTEND Family Medicine Addiction Medicine
PROC: HZ2ZZZZ Detoxification Services for Substance Abuse Treatment (ICD-10-PCS; principal; 2018-03-25)
PROC: HZ31ZZZ Individual Counseling for Substance Abuse Treatment, Behavioral (ICD-10-PCS; 2018-03-27)
DX: F11.23 Opioid dependence with withdrawal (principal); E87.1 Hypo-osmolality and hyponatremia; F41.9 Anxiety disorder, unspecified; Z81.3 Family history of other psychoactive substance abuse and dependence; F15.10 Other stimulant abuse, uncomplicated; E87.6 Hypokalemia; E16.2 Hypoglycemia, unspecified; Z81.8 Family history of other mental and behavioral disorders; J45.990 Exercise induced bronchospasm; F31.9 Bipolar disorder, unspecified; F90.9 Attention-deficit hyperactivity disorder, unspecified type; G47.00 Insomnia, unspecified; F13.10 Sedative, hypnotic or anxiolytic abuse, uncomplicated; N89.8 Other specified noninflammatory disorders of vagina
CPT/HCPCS: 36415; 80307; 80324; 80361; 83690; 83735; 84443; 84703; 85025; 86580; 86592; 86705; 86803; 87210; 87340; 87806; A4663; G0480; J2405; Q0162; Q0163